=== PATIENT | male | born 1950 | race Caucasian/White ===

== ENCOUNTER 2018-04-05 08:06 | Emergency (ER) | payer OTHER, SELFPAY ==
[2018-04-05 08:07] VITALS: BP 148/84; PULSE 52; RESP 14; TEMP 37; O2SAT 96; BMI 27.7
--- NOTE | 2018-04-05 08:21 | CT_ITS ---
STUDY: CT ABDOMEN AND PELVIS WITHOUT CONTRAST REASON FOR EXAM: Male, 68 years old. Left flank pain. RADIATION DOSAGE (If Supplied By Facility): CTDIvol = ( 7.71 ) mGy, DLP = ( 369.76 ) mGycm TECHNIQUE: Transaxial images were obtained from the dome of the diaphragm to the symphysis pubis without oral contrast, and without intravenous contrast. Sagittal and coronal images were reconstructed. Individualized dose optimization techniques were used for this CT. COMPARISON: None. FINDINGS: The visualized lung bases are unremarkable. The visualized portions of the heart are within normal limits. Normal liver. Normal gallbladder and extrahepatic biliary system. Normal spleen. Normal pancreas. Normal bilateral adrenal glands. There is a 2.1 cm x 1.8 cm well-defined rounded hypodensity projecting from the posterior lateral aspect of the right kidney. There is a 3.8 cm x 4.2 cm soft tissue mass arising from the inferior posterior aspect of the right kidney. A neoplastic process should be ruled out. There is evidence of a right perinephric stranding. Correlation with an enhanced CT scan is recommended. There is a marked degree of left perinephric and periureteric stranding. This extends into the left hemipelvis and left flank. Mild left hydronephrosis. This is due to a 5.3 mm calculus at the left ureterovesical junction. There is a small hiatal hernia. Normal small intestine. Normal colon. The appendix is visualized and appears normal. There is scattered atherosclerotic calcification of the abdominal aorta, without a demonstrated aneurysm. Normal inferior vena cava. Normal retroperitoneum. Diffuse bladder wall thickening. There are prostatic calcifications. Prostatic enlargement. The prostate measures 4.6 cm x 3.5 cm. Normal abdominal wall. There are degenerative changes of the visualized lumbar spine. CT/Abdomen/Pelvis without Cont IMPRESSION: Left hydronephrosis and left hydroureter with marked degree of left perinephric stranding and periureteric stranding. There is a 5.3 mm calculus at the left ureterovesical junction. Hydronephrosis. Findings suggestive of a solid mass in the lower pole of the right kidney. Correlation with ultrasound or enhanced CT scan is recommended for further evaluation. Electronically Signed: Michael Miles MD at 9:51 EST Tel [phone], Service support ,
--- NOTE | 2018-04-05 08:26 | ED.DCSUM_ITS ---
- ER Visit Summary Date of Service: 04/05/18 Chief Complaint: Left flank pain History of Present Illness: The patient is a 68 M who presents with left flank pain that began last night. Patient states the pain is been constant since last night but has been waxing and waning. Patient states the pain would get sharp at times but now is a constant ache. Patient denies any radiation of the pain. Patient denies any dysuria hematuria. Patient denies any nausea or vomiting. Patient states he has had a recent upper respiratory infection with a sore throat and cough with clear sputum. Patient also admits to some rhinorrhea. Patient denies any fevers or chills. Physical Examination: Vital signs are stable. Patient is afebrile. Patient is in no acute distress. Oral mucosa is pink and moist. Neck is supple. Trachea is midline. There is no JVD noted. Heart was regular rate and rhythm. Lungs are clear and equal bilaterally. There is good respiratory effort noted. Abdomen is soft. There is some mild tenderness in the left lower quadrant. There is no rebound or guarding noted. There are no masses noted. Cranial nerves II through XII are intact. There are no focal motor or sensory deficits noted. The remaining physical exam is within normal limits. Test Results: CBC, basic metabolic profile, and urinalysis were obtained. There is a mild leukocytosis of 14.3. BUN and creatinine were slightly elevated at 28 and 1.66. Urinalysis does not show any evidence of urinary tract infection. CT scan of the abdomen and pelvis was obtained. There is a 5.3 mm calculus at the left UVJ with hydronephrosis and hydroureter. There is also a solid mass in the lower pole of the right kidney. Emergency Department Course and Treatment: Patient was given IV fluids and Toradol here. Patient was given a prescription for Percocet. Patient was also given a prescription for Tessalon for his upper respiratory infection. Patient was given a referral for urology. Patient was instructed to follow-up in 5-7 days. Patient understood and was agreeable with the plan. All questions were answered. Disposition: Discharged home Impression: Left distal ureteral calculus This note was generated with [employer] dictation software. It may contain incorrect words, spelling, and punctuation that were not noted in review of the chart prior to signing ED Disposition - Plan for ED Patient: Disposition: Home or Assisted Living Chief Complaint: Flank Pain Diagnosis: Calculus of distal left ureter Instructions: ED Stone Renal W Colic Prescriptions: Oxycodone HCl/Acetaminophen [Percocet 5/325] 1 tab PO Q6H PRN PRN 3 Days #12 tab PRN Reason: Pain Benzonatate [Tessalon Perle] 200 mg PO TID PRN PRN #20 cap PRN Reason: Cough Referrals: Care Physician,No Primary [Primary Care Provider] - David Kay MD [STAFF PHYSICIAN] -
[2018-04-05] MEDS: Ketorolac 30 MG/ML Syringe 15 MG IV (08:29)
[2018-04-05 08:31] LABS: Bacteria 0 SEEN /hpf (None Seen); Color, Urine Yellow (Yellow); Glucose, Dipstick Normal (Normal); Ketone-Dipstick Negative (Negative); Leukocyte Esterase-Dipstick Negative /ul (Negative); Mucous, Urine 0 SEEN /hpf (<or=2+); Nitrite-Dipstick Negative (Negative); Occult Blood-Urine 25 /ul (Negative); Protein-Dipstick 15 mg/dl (Negative); Specific Gravity, Urine 1.025 (1.002-1.030); Squamous Epithelial Cells - UA 0 SEEN /hpf (0-5); Urine Bilirubin Dipstick Negative (Negative); Urine Clarity Sl. Cloudy (Clear); Urine Urobilinogen Normal (Normal); White Blood Cells 0 SEEN /hpf (0-5)
[2018-04-05 08:38] LABS: Red Blood Cells-Urine 0-5 SEEN /hpf (0-5)
[2018-04-05 08:41] LABS: Absolute Lymphocyte Count 0.77 X10^3/ul (0.83-4.51); Absolute Neutrophil Count 12.7 X10^3/uL (2.0-7.7); Basophil# 0.02 X10^3/uL; Basophil% 0.1 % (0-1); Hematocrit 39.8 % (40-54); Hemoglobin 13.4 g/dl (13.0-16.5); Lymphocyte # 0.77 X10^3/ul (4.0); Lymphocyte % 5.4 % (19-41); Mean Corp Hgb Conc 33.7 g/gl (32-36); Mean Corpuscular Hgb 29.4 pg (27.0-32.0); Mean Corpuscular Volume 87.3 fL (80-94); Mean Platelet Vol. 10.3 fl (6.2-12.0); Monocyte# 0.79 X10^3/uL; Monocyte% 5.5 % (0-10); Neutrophil # 12.66 X10^3/uL (2.7-7.7); Neutrophil % 88.9 % (47-70); Platelet Count 276 K/mm3 (150-450); RBC Distribution Width CV 12.4 % (11.6-14.6); RBC Distribution Width SD 39.7 fl (35.1-43.9); Red Blood Count 4.56 M/mm3 (4.6-6.2); White Blood Count 14.3 K/mm3 (4.4-11.0)
[2018-04-05 08:42] LABS: POSITIVE COUNT NO; POSITIVE DIFFERENTIAL NO; POSITIVE MORPHOLOGY NO
[2018-04-05 08:45] LABS: Anion Gap 11 (5-15); BUN 28 mg/dL (7-18); BUN/Creat Ratio 16.9 RATIO (10-20); Calcium,Total 8.4 mg/dL (8.5-10.1); Chloride 107 mmol/L (98-107); Creatinine, Serum 1.66 mg/dL (0.70-1.30); EST Glomerular Filtration Rate 44 mL/min (>60); Est Glom Filt Rate - Afr Amer 53 mL/min (>60); Estimated Creatinine Clearance 40.37 ml/min; Glucose 128 mg/dL (74-106); Potassium 3.9 mmol/L (3.5-5.1); Sodium Level 140 mmol/L (136-145)
[2018-04-05 09:16] VITALS: BP 111/58; PULSE 54; RESP 12; O2SAT 97
[2018-04-05] MEDS: 0.9% Normal Saline 1,000 ML 1000 ML IV (09:18)
[2018-04-05 10:50] VITALS: BP 122/76; PULSE 56; RESP 14; O2SAT 96
== END 2018-04-05 10:51 | disposition home or self-care (01) ==
PROVIDERS: Emergency Provider Emergency Medicine
DX: N13.2 Hydronephrosis with renal and ureteral calculous obstruction (principal); J06.9 Acute upper respiratory infection, unspecified
CPT/HCPCS: 74176; 80048; 81001; 85025; 96361; 96374; 99283; J7030

== ENCOUNTER 2018-10-18 10:30 | Emergency (ER) | payer OTHER, SELFPAY ==
[2018-10-18 10:31] VITALS: BP 159/94; PULSE 60; RESP 18; TEMP 37.4; O2SAT 94; BMI 28.1
--- NOTE | 2018-10-18 10:53 | CT_ITS ---
STUDY: CT ABDOMEN AND PELVIS WITHOUT CONTRAST REASON FOR EXAM: Male, 68 years old. Left flank pain RADIATION DOSAGE (If Supplied By Facility): CTDIvol = ( 9.57 ) mGy, DLP = ( 487.77 ) mGycm TECHNIQUE: Transaxial images were obtained from the dome of the diaphragm to the symphysis pubis without oral contrast, and without intravenous contrast. Sagittal and coronal images were reconstructed. Individualized dose optimization techniques were used for this CT. COMPARISON: None. FINDINGS: The visualized lung bases are unremarkable. The visualized portions of the heart are within normal limits. Normal liver. Normal gallbladder and extrahepatic biliary system. Normal spleen. Normal pancreas. Normal bilateral adrenal glands. Right kidney is free of obstruction. There is nonspecific induration of the perinephric fat. There is a stable 2.1 x 1.8 cm likely simple cyst arising from the posterior lateral aspect of the right kidney and a worrisome 3.8 x 4.2 cm soft tissue mass in the inferior aspect of the right kidney. A neoplastic process needs to be excluded. Left kidney shows hydronephrosis and hydroureter with perinephric and pararenal ureteral inflammatory stranding. This is essentially unchanged on the previous study. The previous study showed a 5.3 mm stone at the left UVJ, that stone is now moved only slightly distally and is likely at the ureter entrance into the bladder is seen on axial image 148. Normal visualized stomach. Normal small intestine. Retained stool noted throughout the colon. The appendix is visualized and appears normal. Normal abdominal aorta. Normal inferior vena cava. Normal retroperitoneum. Normal urinary bladder. There are prostatic calcifications. There are bilateral fat-containing inguinal hernias. There are diffuse degenerative changes of the visualized lumbar spine, and pelvis. CT/Abdomen/Pelvis without Cont IMPRESSION: Persistent left hydronephrosis and hydroureter with perinephric and periureteral inflammatory stranding. A previously noted 5.3 mm stone in the distal left ureter has now moved only slightly distally and sits just distal to the left UVJ within the bladder. Persistent suspicious 3.8 x 4.2 cm solid lesion off the lower pole the right kidney, neoplasm needs be excluded. Stable 2.1 x 1.8 cm cyst off the posterior lateral right kidney Retained stool noted throughout the colon Bilateral fat-containing inguinal hernias Degenerative bony changes Electronically Signed: Naif Bhagat MD at 12:27 EDT , Service support ,
--- NOTE | 2018-10-18 10:55 | ED.DCSUM_ITS ---
- ER Visit Summary Date of Service: 10/18/18 Chief Complaint: Left abdominal pain History of Present Illness: The patient is a 68 M who presents for left-sided abdominal pain. Patient states it started 2 days ago and has waxed and waned in intensity. Today it is intense. Patient denies any fever, chest pain, shortness of breath, nausea, vomiting, diarrhea, blood in his stool, or any urinary symptoms. No radiation into the back or to the right side. Patient has a history of a prior kidney stone and states this does feel similar. No other medical issues. He has not taken any medications for the pain. Physical Examination: Vital signs: afebrile, hemodynamically stable, no hypoxia on room air General: Stoic, well nourished, well developed, in no distress Skin: warm, dry, no rash, no pallor HEENT: normocephalic and atraumatic; PERRL, EOMI, moist mucous membranes Cardiovascular: regular rate and rhythm without murmurs, no peripheral edema, 2+ pulses all distal extremities Respiratory: No increased work of breathing, lungs are clear to auscultation bilaterally, no rales, rhonchi or wheezing Abdominal: Abdomen is soft, nontender with normoactive bowel sounds, no guarding or rebound, no masses, mild left-sided CVA tenderness, no rash to the torso MSK: Moves all extremities, no deformities, normal strength Neuro: Awake and alert, oriented ?4. No facial droop, sensation and motor function intact and symmetric Test Results: Abnormal Lab Results 10/18/18 10/18/18 10/18/18 11:15 11:15 12:10 WBC 12.4 H RBC 4.59 L Hgb 13.5 Hct 39.1 L MCV 85.2 MCH 29.4 MCHC 34.5 RDW 12.2 RDW Differential 37.6 Plt Count 276 MPV 9.9 Immature Gran % (Auto) 0.200 Neut % (Auto) 83.6 H Lymph % (Auto) 6.2 L [place] % (Auto) 9.9 Eos % (Auto) 0.0 Baso % (Auto) 0.1 Absolute Neuts (auto) 10.4 H Absolute Lymphs (auto) 0.77 L Total Counted Not Reportable Sodium 136 Potassium 4.3 Chloride 104 Carbon Dioxide 25.0 Anion Gap 7 BUN 29 H Creatinine 1.90 H Estim Creat Clear Calc 35.27 Est GFR (MDRD) Af Amer 46 L Est GFR (MDRD) Non-Af 38 L BUN/Creatinine Ratio 15.3 Glucose 110 H Calcium 8.7 Urine Color Yellow Urine Clarity Clear Urine pH 6.0 Ur Specific Juliette 1.015 Urine Protein Negative Urine Glucose (UA) Normal Urine Ketones 15 H Urine Occult Blood 25 H Urine Nitrite Negative Urine Bilirubin Negative Urine Urobilinogen Normal Ur Leukocyte Esterase Negative Urine RBC 0 SEEN Urine WBC 0 SEEN Ur Squamous Epith Cells 0 SEEN Urine Bacteria 0 SEEN Urine Mucus 0 SEEN Clinical Impression(s) from Imaging Studies Abdomen/Pelvis CT 10/18/18 10:53 IMPRESSION: Persistent left hydronephrosis and hydroureter with perinephric and periureteral inflammatory stranding. A previously noted 5.3 mm stone in the distal left ureter has now moved only slightly distally and sits just distal to the left UVJ within the bladder. Persistent suspicious 3.8 x 4.2 cm solid lesion off the lower pole the right kidney, neoplasm needs be excluded. Stable 2.1 x 1.8 cm cyst off the posterior lateral right kidney Retained stool noted throughout the colon Bilateral fat-containing inguinal hernias Degenerative bony changes Electronically Signed: Naif Bhagat MD at 12:27 EDT , Service support , Medications Given Discontinued Medications Ketorolac Tromethamine (Toradol) 15 mg IV X1 ONE Stop: 10/18/18 10:54 Last Admin: 10/18/18 11:36 Dose: 15 mg Emergency Department Course and Treatment: Patient was given Toradol for pain. He had good relief of his pain with this medication. Labs showed mild leukocytosis of 12.4. Creatinine was 1.9, consistent with patient's baseline function. Urine showed no overt hematuria and no sign of infection. CT flank showed the left sided kidney stone that was present on the March 2018 the scan, and it has barely progressed since that scan was done. Patient was referred to urology for further intervention. He is to call today or tomorrow to make an appointment. He states he Dino has pain medication at home and did not need any further prescriptions. Return precautions given. Patient discharged home well-appearing and in no distress. Treatment Plan: [] Disposition: [] Impression: Left-sided ureteral colic This note was generated with [employer] dictation software. It may contain incorrect words, spelling, and punctuation that were not noted in review of the chart prior to signing ED Disposition - Plan for ED Patient: Disposition: Home or Assisted Living Instructions: ED Stone Renal W Colic Referrals: Care Physician,No Primary [Primary Care Provider] - David Kay MD [STAFF PHYSICIAN] - As soon as possible Additional Instructions: You still have a kidney stone on the left side that looks like the same one you had in March. Please follow-up with urology as soon as possible. Call this afternoon or early in the morning to make an appointment soon as they can get you when. Within 1 week would be preferable. Continue your home pain medications as needed for pain. If you have any worsening of your condition or any new concerning symptoms, please return immediately to the emergency department for another evaluation.
[2018-10-18 11:27] LABS: Absolute Lymphocyte Count 0.77 X10^3/ul (0.83-4.51); Absolute Neutrophil Count 10.4 X10^3/uL (2.0-7.7); Basophil# 0.01 X10^3/uL; Basophil% 0.1 % (0-1); Hematocrit 39.1 % (40-54); Hemoglobin 13.5 g/dl (13.0-16.5); Lymphocyte # 0.77 X10^3/ul (4.0); Lymphocyte % 6.2 % (19-41); Mean Corp Hgb Conc 34.5 g/gl (32-36); Mean Corpuscular Hgb 29.4 pg (27.0-32.0); Mean Corpuscular Volume 85.2 fL (80-94); Mean Platelet Vol. 9.9 fl (6.2-12.0); Monocyte# 1.23 X10^3/uL; Monocyte% 9.9 % (0-10); Neutrophil # 10.37 X10^3/uL (2.7-7.7); Neutrophil % 83.6 % (47-70); POSITIVE COUNT NO; POSITIVE DIFFERENTIAL NO; POSITIVE MORPHOLOGY NO; Platelet Count 276 K/mm3 (150-450); RBC Distribution Width CV 12.2 % (11.6-14.6); RBC Distribution Width SD 37.6 fl (35.1-43.9); Red Blood Count 4.59 M/mm3 (4.6-6.2); White Blood Count 12.4 K/mm3 (4.4-11.0)
[2018-10-18] MEDS: Ketorolac 30 MG/ML Syringe 15 MG IV (11:36)
[2018-10-18 11:45] LABS: Anion Gap 7 (5-15); BUN 29 mg/dL (7-18); BUN/Creat Ratio 15.3 RATIO (10-20); Calcium,Total 8.7 mg/dL (8.5-10.1); Chloride 104 mmol/L (98-107); EST Glomerular Filtration Rate 38 mL/min (>60); Est Glom Filt Rate - Afr Amer 46 mL/min (>60); Estimated Creatinine Clearance 35.27 ml/min; Glucose 110 mg/dL (74-106); Potassium 4.3 mmol/L (3.5-5.1); Sodium Level 136 mmol/L (136-145)
[2018-10-18 12:08] VITALS: BP 125/79; PULSE 53; RESP 16; TEMP 36.6; O2SAT 93
[2018-10-18 12:16] LABS: Bacteria 0 SEEN /hpf (None Seen); Mucous, Urine 0 SEEN /hpf (<or=2+); Red Blood Cells-Urine 0 SEEN /hpf (0-5); Squamous Epithelial Cells - UA 0 SEEN /hpf (0-5); White Blood Cells 0 SEEN /hpf (0-5)
[2018-10-18 12:21] LABS: Color, Urine Yellow (Yellow); Glucose, Dipstick Normal (Normal); Ketone-Dipstick 15 mg/dl (Negative); Leukocyte Esterase-Dipstick Negative /ul (Negative); Nitrite-Dipstick Negative (Negative); Occult Blood-Urine 25 /ul (Negative); Protein-Dipstick Negative (Negative); Specific Gravity, Urine 1.015 (1.002-1.030); Urine Bilirubin Dipstick Negative (Negative); Urine Clarity Clear (Clear); Urine Urobilinogen Normal (Normal)
== END 2018-10-18 13:44 | disposition home or self-care (01) ==
PROVIDERS: Emergency Provider Emergency Medicine
DX: N20.0 Calculus of kidney (principal); Z87.442 Personal history of urinary calculi
CPT/HCPCS: 74176; 80048; 81001; 85025; 96374; 99283; A4216

== ENCOUNTER → 2018-11-12 | Outpatient (CLI) | payer SELFPAY ==
[2018-10-18 10:31] VITALS: BMI 28.1
--- NOTE | 2018-11-12 08:28 | CT_ITS ---
STUDY: CT ABDOMEN AND PELVIS WITH AND WITHOUT CONTRAST REASON FOR EXAM: Male, 68 years old. Left kidney stone. Right renal mass. RADIATION DOSAGE (If Supplied By Facility): CTDIvol = ( 17.92 ) mGy, DLP = ( 2039.35 ) mGycm TECHNIQUE: Transaxial images were obtained from the dome of the diaphragm to the symphysis pubis without oral contrast. 75ml IV Isovue 300 was administered. Sagittal and coronal images were reconstructed. Individualized dose optimization techniques were used for this CT. COMPARISON: 04/05/2018, 10/18/2018. FINDINGS: The visualized lung bases are unremarkable. The visualized portions of the heart are within normal limits. Normal liver. Normal gallbladder and extrahepatic biliary system. Normal spleen. Normal pancreas. Normal bilateral adrenal glands. Right kidney has a stable heterogeneous enhancing 0.9 cm mass of the right lower pole consistent with malignancy and also diagnosed on previous studies. Stable 2.2 cm exophytic cyst of the mid right kidney. Left kidney is within normal limits. Evaluation of the GI tract is limited by absence of oral contrast. Cannot exclude stomach wall thickening. No dilated loops of bowel or evidence for obstruction. Cannot exclude segmental thickening of the mondragon of the small or large bowel. Cannot exclude enteritis or colitis. Moderate diffuse fecal retention. Appendix within normal limits. Normal abdominal aorta. Normal inferior vena cava. Normal retroperitoneum. Bladder has slightly thickened wall. 2 or 3 small stones are seen on the posterior wall of the bladder. Moderately large prostate gland. Bilateral small fat-containing inguinal hernias. There are diffuse degenerative changes of the visualized lumbar spine. CT/CT Abd/Pelvis W/WO Contrast IMPRESSION: Again seen is a probable malignancy of the lower pole of the right kidney, as noted on prior studies. No other acute abnormalities. Small stones along the posterior wall of the bladder. Probable bladder wall thickening from prostate enlargement. Electronically Signed: Chandler Priest MD at 17:09 EDT , Service support ,
== END | disposition home or self-care (01) ==
PROVIDERS: Referring Provider Urology; Visit Provider Urology
DX: N20.0 Calculus of kidney (principal); N28.89 Other specified disorders of kidney and ureter
CPT/HCPCS: 74178; Q9967

== ENCOUNTER 2018-12-18 07:29 | Observation (INO) | payer SELFPAY ==
[2018-12-10 11:05] VITALS: BP 151/89; PULSE 48; RESP 16; TEMP 36.6; O2SAT 95; BMI 27.3
--- NOTE | 2018-12-10 11:13 | SDCEKG_ITS ---
Test Reason : Blood Pressure : / mmHG Vent. Rate : 047 BPM Atrial Rate : 047 BPM P-R Int : 152 ms QRS Dur : 094 ms QT Int : 426 ms P-R-T Axes : 061 001 011 degrees QTc Int : 377 ms Marked sinus bradycardia Abnormal ECG Confirmed by HERNAN COOPER, TROY ([id number]), purchase request editor ELIDA WEST ([id number]) on 12/16/2018 1:07:54 PM Referred By: David Kay Confirmed By:ALEXIS BECERRA MD
--- NOTE | 2018-12-10 11:24 | RAD_ITS ---
STUDY: X-RAY CHEST REASON FOR EXAM: Male, 68 years old. Preoperative evaluation. Shortness of breath. TECHNIQUE: PA and lateral views of the chest. COMPARISON: None. FINDINGS: The lungs are clear and expanded. There is no demonstrated pleural abnormality. Normal size heart. Normal mediastinum and pushpa. Normal visualized pulmonary arteries. There is atherosclerotic tortuosity of the aortic arch and descending thoracic aorta. There are diffuse degenerative changes of the visualized thoracic spine. Normal visualized ribs, clavicles, and shoulders. There is no demonstrated abnormality of the visualized soft tissue structures of the upper abdomen. RAD/Chest PA and Lateral IMPRESSION: No acute abnormality is seen. Electronically Signed: Michael Miles, at 12:25 EDT , Service support ,
[2018-12-10 11:47] LABS: Hematocrit 41.5 % (40-54); Hemoglobin 13.9 g/dL (13.0-16.5); Mean Corp Hgb Conc 33.5 g/dL (32-36); Mean Corpuscular Hgb 29.4 pg (27.0-32.0); Mean Corpuscular Volume 87.9 fL (80-94); Mean Platelet Vol. 10.2 fl (6.2-12.0); Platelet Count 254 K/mm3 (150-450); RBC Distribution Width CV 11.9 % (11.6-14.6); Red Blood Count 4.72 M/mm3 (4.6-6.2); White Blood Count 8.8 K/mm3 (4.4-11.0)
[2018-12-10 12:55] LABS: ALB/GLOB Ratio 1.1 RATIO (0.9-2.4); AST(SGOT) 23 U/L (15-37); Alanine Aminotransfer ALT/SGPT 15 U/L (16-61); Alkaline Phosphatase 64 U/L (45-117); Anion Gap 10 (5-15); BUN 20 mg/dL (7-18); BUN/Creat Ratio 22.6 RATIO (10-20); Calcium,Total 8.8 mg/dL (8.5-10.1); Chloride 107 mmol/L (98-107); Creatinine, Serum 0.88 mg/dL (0.70-1.30); EST Glomerular Filtration Rate 91 mL/min (>60); Est Glom Filt Rate - Afr Amer 110 mL/min (>60); Estimated Creatinine Clearance 76.16 ml/min; Globulin 3.6 g/dL (2.2-4.2); Glucose 102 mg/dL (74-106); Potassium 4.1 mmol/L (3.5-5.1); Protein, Total 7.6 g/dL (6.4-8.2); Sodium Level 141 mmol/L (136-145)
[2018-12-18] VITALS (14 sets, daily range): BP systolic 113–151; BP diastolic 69–86; PULSE 52–66; RESP 14–18; TEMP 36.2–37.2; O2SAT 93–99; BMI 27.3
--- NOTE | 2018-12-18 07:27 | PCM.HP.BLA ---
History and Physical Date of Admission: 12/18/18 Patient returns, 68-year-old healthy male recently passed a kidney stone but on CAT scan we saw that there was an abnormal growth on his right kidney so we did a CT scan with IV contrast. CAT scan demonstrates that he has a 4 cm mass in the lower pole of the right kidney. He also has a stone within the bladder. Symptom harper at this point is not have any back pain or flank pain. No weight loss. He's been feeling well. No gross hematuria. 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 Tobacco Use Assessment Completed: Used Tobacco in last 30 days? Does not use smokeless tobacco. Has never drank. Does not use drugs. Does not drink caffeine. Has not had a blood transfusion. REVIEW OF SYSTEMS: Constitutional: Patient denies fever, chills, weight loss, and weight gain. Eyes: Patient denies blurry vision, cataracts, and glaucoma. Ears, Nose, Mouth, Throat: Patient denies hearing loss, sinus infections, and sleep apnea. Cardiovascular: Patient denies chest pains, swollen ankles, irregular heartbeat, and pacemaker/defib. Respiratory: Patient denies shortness of breath, wheezing, oxygen, and cpap machine. Gastrointestinal: Patient denies abdominal pain, diarrhea, constipation, nausea, and vomiting. Genitourinary: Patient denies frequent urination, urinary retention, get up at night to void, leakage of urine, painful urination, blood in the urine, frequent uti's, history of stones, difficulty starting stream, weak stream/scanty, and bedwetting. Musculoskeletal: Patient denies sore muscles, back pain, and gout. Integumentary/Skin: Patient denies skin cancer, chronic itching, and rash. Neurological: Patient denies falling/unsteady, paralysis, and stroke/tia. Hematologic/Lymphatic: Patient denies abnormal bleeding, blood transfusion, swollen lymph nodes, deep venous thrombosis, and pulmonary embolism. VITAL SIGNS: 12/10/2018 10:16 AM Weight 175 lb / 79.38 kg Height 67 in / 170.18 cm BP 118/78 mmHg BMI 27.4 kg/m? MULTI-SYSTEM PHYSICAL EXAMINATION: Constitutional: Well-nourished. No physical deformities. Normally developed. Good grooming. Neck: Neck symmetrical, not swollen. Normal tracheal position. Respiratory: No labored breathing, no use of accessory muscles. Cardiovascular: Normal temperature, normal extremity pulses, no swelling, no varicosities. Lymphatic: No enlargement of neck, axillae, groin. Skin: No paleness, no jaundice, no cyanosis. No lesion, no ulcer, no rash. Neurologic / Psychiatric: Oriented to time, oriented to place, oriented to person. No depression, no anxiety, no agitation. Gastrointestinal: No mass, no tenderness, no rigidity, non obese abdomen. Eyes: Normal conjunctivae. Normal eyelids. Ears, Nose, Mouth, and Throat: Left ear no scars, no lesions, no masses. Right ear no scars, no lesions, no masses. Nose no scars, no lesions, no masses. Normal hearing. Normal lips. Musculoskeletal: Normal gait and station of head and neck. PAST DATA REVIEWED: Source Of History: Patient X-Ray Review: C.T. Abdomen/Pelvis: Reviewed Films. Reviewed Report. Discussed With Patient. 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 Also at the time of the procedure can do a cystoscopy and laser and removal of a bladder stone and evaluation of the prostate and bladder, he be set up for the surgery coming here in December will see him in preoperative setting to review the surgery what to expect etc
--- NOTE | 2018-12-18 07:30 | KID_PTH ---
PATIENT: VIVIAN FARFAN LOC: [facility] U#:[id number] AGE/SX: 68/M ROOM: [facility] RE12/18/[address]: Dr. David Kay MD : 1950 BED: 1 DIS: 12/21/2018 SPEC #: [id number] RECD: 12/19/18 08:03 STATUS: FLORENTIN KEVIN #: [id number] KAVON: 12/18/18 07:[address]: David Kay DEPT: SURGICAL PATHOLOGY RECD BY: Riaz De La Cruz ENTERED: 12/19/18 08:04 SP TYPE: KIDNEY OTHR DR: Loida Primary Care Phys Tissues: A - Kidney, NOS B - Kidney, NOS Procedures: Gen Path Consultation (on slides) Surgery Specimen Level IV Surgery Specimen Level V HEADER OPERATION: Laparoscopic robotic right partial nephrectomy PRE-OP DIAGNOSIS: Neoplasm of right kidney TISSUE SUBMITTED: A - Fat over tumor (from right kidney), B - Right renal tumor MICROSCOPIC DIAGNOSIS A. Fat over tumor from kidney, biopsy: Mature adipose tissue. No evidence of malignancy. B. Right renal tumor, partial nephrectomy: Oncocytoma. AM:mariela 12/27/18 COMMENT This case is seen in consultation with Dr. Aponte of [email or web address] and the above diagnosis is rendered.. The complete consultative report is viewable in patient's EMR. Case has been reviewed in consultation with Dr. Ramey who concurs with the above diagnosis. IDC:[id number] MICROSCOPIC DESCRIPTION Slides are reviewed. GROSS DESCRIPTION A - Received in fixative is one container labeled with the patient's name and designated fat over tumor from right kidney. The specimen consists of a piece of yellow adipose tissue measuring 9 x 6 x 2.5 cm. Sections reveal yellow adipose cut surfaces without any mass lesion. Teen Counselor sections are submitted in one cassette. B - Received in fixative is one container labeled with the patient's name and designated right renal tumor. The specimen consists of a piece of renal tissue containing a nodule weighing 26 gm and measuring 4.5 x 4 x 3 cm. The specimen could not be oriented for obvious renal parenchymal margin. The entire surface is inked black. Sections reveal yellowish, solid tumor mass measuring 4 x 3.5 x 3 cm. An area of necrosis or hemorrhage is not identified. Sections reveal normal appearing renal tissue measuring up to 0.7 cm in width. Also present in the container is a detached piece of adipose tissue measuring 6 x 4 x 2 cm. No mass lesion is identified. Teen Counselor sections are submitted in eight cassettes as follows: 1-4 - tumor with adjacent uninvolved renal parenchymal tissue, 5 & 6 - more sections of tumor, 7 & 8 - adipose tissue. / SJ:mariela 12/19/18 Additional sections of tumor are submitted in cassettes -12. / AM:mariela 12/20/18 TC:1 CPT: 27093, 25523
[2018-12-18] MEDS: Cefazolin 2 GM in 0.9% Normal Saline 100 ML IV (07:40)
--- NOTE | 2018-12-18 12:55 | OP.PCM_ITS ---
Report of Operation Date of Procedure: 12/18/18 Pre-Operative Diagnosis: Bladder stone, right 4 cm lower pole renal mass Post-Operative Diagnosis: The same Surgery/Procedure Performed:: Cystoscopy, laser of bladder stone removal of fragments, right laparoscopic robotic assisted partial nephrectomy, ultrasound of the kidney intraoperative. Description of Surgical Findings:: 68-year-old male who presented the office with gross hematuria on work-up he was found to have a stone in his bladder and he also had a solid enhancing mass in the right kidney concerning for malignancy recommended we proceed with treatment of the bladder stone with cystolitholapaxy and removal of the bladder stone in the same time we then proceed with a robotic right partial nephrectomy. We talked about the potential etiologies of the renal mass could be malignant, could be benign, type of the risk of the surgery including bleeding, infection, risk of anesthesia. 68-year-old male was taken back to the operating room after smooth induction of general anesthesia he was placed in dorsolithotomy position, the penis and testicles were prepped and draped in usual sterile fashion, went into the bladder with a 21 [place] rigid cystourethroscope, the entire length of the urethra is normal the prostate urethra was normal inside the bladder identified a 1 cm stone in the base of the bladder, I then used a 270 ?m laser fiber to break the stone into tiny pieces and then I flushed the pieces out of the bladder. On inspection of the prostate he had some mild obstruction but no significant obstruction was seen in the left and right ureter orifice were normal position. We then change the table repositioned the patient completely for a right sided position so the right side was up we put him in full flank with pressure points padded arm across the side and secured used to roll in the back to support the back Richards catheter was placed. And then after placing the patient in full flank he is abdomen was shaved prepped and draped in usual sterile fashion I first infiltrated the skin with lidocaine and then used a Veress needle into advanced a Veress needle into the peritoneal cavity filled at the peritoneal cavity with CO2 gas and then I placed my camera trocar right arm trocar left arm trocar and the fourth arm trocar we then placed a air seal port and he also placed a 5 mm port in the umbilicus. Started off by reflecting the colon off the right kidney started in the mid kidney and worked elevated superiorly and worked all the way down to the pelvis and the colon was successfully resected back after this we then identified the Gerota fascia dis sected down until it merged with the inferior vena cava elevated the drug was fascia off the medial inferior vena cava and identified the gonadal vein there was a branching vein decided to take it so 2 clips were placed in the canal vein to get it out of the way it was not draining directly in the vena cava look normal but it was draining into the right renal vein. We then proceeded with the dissection I used the fourth arm to elevate the kidney very gently off the hilum we then went to the hilum the hilum was a very complicated hilum with a large renal vein and multiple branching renal veins behind the large renal vein and then behind these branching veins was the renal artery took quite a extensive amount time to dissect around the hilum eventually was able to find the renal artery and freed up with lymphatic tissues and create a space so that I could clamp the renal artery. I then went up to the kidney used a director of estate scopic ultrasound to identify the tumor I then dissected the tumor circumferentially down to the parenchyma of the kidney marking the prink in the kidney so I do the resection site and to the edge of the resection to obtain negative margins once the tumor was demarcated all the way around using intraoperative ultrasound then a kidney was flipped back onto the normal position we able to identify the renal artery superior to the veins and we placed a one short bulldog in the renal artery fortunately this was able to control bleeding the kidney turned nice and pale white I then started the resection of the tumor working my way around the tumor circumferentially working deep down below the tumor we were had a gross negative margin and excised the tumor completely of the lower pole posterior part of the kidney I then ran 3 stitches along the base of the resection site using V lock stitches and then I used imbricated a bolster suture technique to run a long 0 Vicryl we then unclamped the kidney clamp time was about 29 minutes, and the blood loss was about 250 cc we then looked back a resection site there is still a little bit of minor oozing so I placed 2 more large 0 Vicryl Vicryl stitches to to put more pressure on the resection site and this fortunately stopped all bleeding we then irrigated the kidney suctioned all the blood we extracted the tumor from the air seal port site the tumor in the fat over the kidney kidney tumor was extracted to the air seal port site. We then closed that extraction site looked back into the abdomen is been at least 10 minutes with no new with peritoneum and there was no significant cannulation of blood within the abdomen. We then closed the camera trocar with a [place] Cheema stitch and then we closed all the stitches with subarticular stitches all the needles and sponges were accounted for patient is still under anesthesia currently in anesthesia being reversed mentioned in the dictation it was a complete resection of the tumor gross negative margins the tumor will be sent off for pathology. Type of Anesthesia:: General Drains: richards. Estimated Blood Loss (mL): 250ml Fluids Replaced: 2500ml - Admit VTE Documentation VTE Present on Admission: No VTE Mechan Device Prophylaxis: SCD's
[2018-12-18] MEDS: Bupivacaine Mpf 0.5% 30 ML VIAL (12:57)
[2018-12-18 15:04] LABS: Hematocrit 40.3 % (40-54); Hemoglobin 13.4 g/dL (13.0-16.5); Mean Corp Hgb Conc 33.3 g/dL (32-36); Mean Corpuscular Hgb 29.6 pg (27.0-32.0); Mean Platelet Vol. 10.5 fl (6.2-12.0); Platelet Count 295 K/mm3 (150-450); RBC Distribution Width SD 38.9 fl (35.1-43.9); Red Blood Count 4.53 M/mm3 (4.6-6.2); White Blood Count 20.1 K/mm3 (4.4-11.0)
[2018-12-18 15:31] LABS: Anion Gap 7 (5-15); BUN 15 mg/dL (7-18); BUN/Creat Ratio 12.4 RATIO (10-20); Calcium,Total 8.2 mg/dL (8.5-10.1); Chloride 108 mmol/L (98-107); Creatinine, Serum 1.21 mg/dL (0.70-1.30); EST Glomerular Filtration Rate 63 mL/min (>60); Est Glom Filt Rate - Afr Amer 77 mL/min (>60); Estimated Creatinine Clearance 55.39 ml/min; Glucose 162 mg/dL (74-106); Potassium 4.7 mmol/L (3.5-5.1); Sodium Level 142 mmol/L (136-145)
[2018-12-18] MEDS: Cefazolin 1 GM/50 ML BAG IV ×2 (15:41→22:00)
[2018-12-18] MEDS: 0.45% Normal Saline 1,000 ML 125 ML IV ×2 (15:49→22:07)
[2018-12-18] MEDS: Ondansetron 4 MG/2 ML Vial IV (16:54)
[2018-12-18] MEDS: Morphine 2 MG/ML Syringe IV (16:54)
[2018-12-18] MEDS: Acetaminophen 500 MG Tablet PO (17:25)
[2018-12-18] MEDS: HYDROcodone Bitartrate/Apap 5/325 Tablet PO (17:26)
[2018-12-18] MEDS: Ketorolac 15 MG/ML Vial IV (19:07)
[2018-12-18] MEDS: Docusate Sodium 100 MG Capsule PO (22:00)
[2018-12-19] VITALS (7 sets, daily range): BP systolic 110–119; BP diastolic 67–72; PULSE 53–64; RESP 16; TEMP 36.4–37.3; O2SAT 92–99
[2018-12-19] MEDS: Acetaminophen 500 MG Tablet PO (01:13)
[2018-12-19] MEDS: Ketorolac 15 MG/ML Vial IV ×2 (01:14→14:04)
[2018-12-19 06:16] LABS: Hematocrit 33.8 % (40-54); Hemoglobin 11.2 g/dL (13.0-16.5); Mean Corp Hgb Conc 33.1 g/dL (32-36); Mean Corpuscular Hgb 29.3 pg (27.0-32.0); Mean Corpuscular Volume 88.5 fL (80-94); Mean Platelet Vol. 10.4 fl (6.2-12.0); Platelet Count 206 K/mm3 (150-450); RBC Distribution Width CV 12.4 % (11.6-14.6); RBC Distribution Width SD 39.8 fl (35.1-43.9); Red Blood Count 3.82 M/mm3 (4.6-6.2); White Blood Count 9.2 K/mm3 (4.4-11.0)
[2018-12-19] MEDS: 0.45% Normal Saline 1,000 ML 125 ML IV (06:18)
[2018-12-19 06:23] LABS: Anion Gap 3 (5-15); BUN 18 mg/dL (7-18); BUN/Creat Ratio 13.3 RATIO (10-20); Calcium,Total 7.7 mg/dL (8.5-10.1); Chloride 107 mmol/L (98-107); Creatinine, Serum 1.35 mg/dL (0.70-1.30); EST Glomerular Filtration Rate 56 mL/min (>60); Est Glom Filt Rate - Afr Amer 68 mL/min (>60); Estimated Creatinine Clearance 49.64 ml/min; Glucose 107 mg/dL (74-106); Sodium Level 137 mmol/L (136-145)
--- NOTE | 2018-12-19 07:20 | PCM.PROGNOTE ---
Subjective: Postop day #1, no shortness of breath, no chest pain, up in a chair, tolerating liquids, no nausea or vomiting, does have significant pain rated around 7-10 depending on movement. - Physical Exam General: Alert, Oriented x3, Cooperative HEENT: Atraumatic, PERRLA, EOMI, Normocephalic Neck: Supple, No JVD, Negative Carotid Bruits Lungs: Clear to auscultation, Normal air movement Cardiovascular: Regular rate, No murmurs Abdomen: Bowel Sounds Present, Soft, Non Tender Extremities: No edema, Capillary Refill Less than 3 Seconds Skin: No rashes, No breakdown Musculoskeletal: No Tenderness to Palpation of Joints or Extremities Neurological: Cranial nerves II-XII grossly intact Psych/Mental Status: Normal Affect, Appropriate Vital Signs Temp Pulse Resp BP Pulse Ox 98.9 F 53 L 16 111/69 94 12/19/18 06:24 12/19/18 06:24 12/19/18 06:24 12/19/18 06:24 12/19/18 06:24 Oxygen Flow Rate (L/min) 2 Oxygen Delivery Method Room Air Weight: 79.1 kg Body Mass Index (BMI) 27.3 Intake and Output for Last 24 Hours 12/17/18 12/18/18 12/19/18 23:59 23:59 23:59 Intake Total 5800 / 7351 2472 / 2472 Output Total 415 / 1165 1650 / 1650 Balance 5385 / 6186 822 / 822 Laboratory Tests Past 24 Hrs 12/18/18 12/18/18 12/19/18 14:55 14:55 05:40 WBC 20.1 H 9.2 RBC 4.53 L 3.82 L Hgb 13.4 11.2 L Hct 40.3 33.8 L MCV 89.0 88.5 MCH 29.6 29.3 MCHC 33.3 33.1 RDW Std Deviation 38.9 39.8 RDW Coeff of Tomasa 12.0 12.4 Plt Count 295 206 MPV 10.5 10.4 Sodium 142 Potassium 4.7 Chloride 108 H Carbon Dioxide 27.0 Anion Gap 7 BUN 15 Creatinine 1.21 Estim Creat Clear Calc 55.39 Est GFR (MDRD) Af Amer 77 Est GFR (MDRD) Non-Af 63 BUN/Creatinine Ratio 12.4 Glucose 162 H Calcium 8.2 L 12/19/18 05:40 WBC RBC Hgb Hct MCV MCH MCHC RDW Std Deviation RDW Coeff of Tomasa Plt Count MPV Sodium 137 Potassium 4.0 Chloride 107 Carbon Dioxide 27.0 Anion Gap 3 L BUN 18 Creatinine 1.35 H Estim Creat Clear Calc 49.64 Est GFR (MDRD) Af Amer 68 Est GFR (MDRD) Non-Af 56 L BUN/Creatinine Ratio 13.3 Glucose 107 H Calcium 7.7 L Medical Necessity - Tobacco Use Smoking Status: Never smoker Tobacco Use: Non-smoker Assessment/Plan Plan today's continue with clear liquid diet, ambulation, KVO IV fluids down to 50 cc/h, and DC Diaz.
[2018-12-19] MEDS: Pantoprazole Sodium 20 MG Tablet PO (09:00)
[2018-12-19] MEDS: Magnesium Hydroxide 30 ML UDC 15 ML PO (09:00)
[2018-12-19] MEDS: Docusate Sodium 100 MG Capsule PO ×2 (09:00→21:17)
[2018-12-19] MEDS: 0.9% NaCl Peripheral Flush Adult/Peds IV (14:17)
[2018-12-19] MEDS: HYDROcodone Bitartrate/Apap 5/325 Tablet PO (19:35)
[2018-12-19] MEDS: 0.45% Normal Saline 1,000 ML 50 ML IV (22:30)
[2018-12-20] MEDS: HYDROcodone Bitartrate/Apap 5/325 Tablet PO (00:58)
[2018-12-20 01:02] VITALS: BP 134/79; PULSE 60; RESP 18; TEMP 36.7; O2SAT 93
[2018-12-20] MEDS: Ketorolac 15 MG/ML Vial IV (05:54)
[2018-12-20 05:58] LABS: Hematocrit 33.5 % (40-54); Hemoglobin 11.2 g/dL (13.0-16.5); Mean Corp Hgb Conc 33.4 g/dL (32-36); Mean Corpuscular Hgb 29.8 pg (27.0-32.0); Mean Corpuscular Volume 89.1 fL (80-94); Mean Platelet Vol. 10.6 fl (6.2-12.0); Platelet Count 207 K/mm3 (150-450); RBC Distribution Width CV 12.4 % (11.6-14.6); RBC Distribution Width SD 40.6 fl (35.1-43.9); Red Blood Count 3.76 M/mm3 (4.6-6.2); White Blood Count 8.5 K/mm3 (4.4-11.0)
[2018-12-20 05:59] VITALS: BP 112/78; PULSE 57; RESP 16; TEMP 37.3; O2SAT 92
[2018-12-20 06:19] LABS: Anion Gap 5 (5-15); BUN 15 mg/dL (7-18); BUN/Creat Ratio 11.8 RATIO (10-20); Calcium,Total 8.1 mg/dL (8.5-10.1); Chloride 109 mmol/L (98-107); Creatinine, Serum 1.27 mg/dL (0.70-1.30); EST Glomerular Filtration Rate 60 mL/min (>60); Est Glom Filt Rate - Afr Amer 73 mL/min (>60); Estimated Creatinine Clearance 52.77 ml/min; Glucose 99 mg/dL (74-106); Potassium 4.1 mmol/L (3.5-5.1); Sodium Level 142 mmol/L (136-145)
[2018-12-20 07:30] VITALS: O2SAT 97
--- NOTE | 2018-12-20 07:45 | PCM.PROGNOTE ---
Subjective: doing well pass gas some mild right pain - Physical Exam General: Alert, Oriented x3, Cooperative HEENT: Atraumatic, PERRLA, EOMI, Normocephalic Neck: Supple, No JVD, Negative Carotid Bruits Lungs: Clear to auscultation, Normal air movement Cardiovascular: Regular rate, No murmurs Abdomen: Bowel Sounds Present, Soft, Non Tender Extremities: No edema, Capillary Refill Less than 3 Seconds Skin: No rashes, No breakdown Musculoskeletal: No Tenderness to Palpation of Joints or Extremities Neurological: Cranial nerves II-XII grossly intact Psych/Mental Status: Normal Affect, Appropriate Vital Signs Temp Pulse Resp BP Pulse Ox 99.2 F H 57 L 16 112/78 92 12/20/18 05:59 12/20/18 05:59 12/20/18 05:59 12/20/18 05:59 12/20/18 05:59 Oxygen Flow Rate (L/min) 2 Oxygen Delivery Method Room Air Weight: 79.1 kg Body Mass Index (BMI) 27.3 Intake and Output for Last 24 Hours 12/18/18 12/19/18 12/20/18 23:59 23:59 23:59 Intake Total 5800 / 7351 4689 / 4689 527 / 527 Output Total 415 / 1165 3025 / 3025 Balance 5385 / 6186 1664 / 1664 527 / 527 Laboratory Tests Past 24 Hrs 12/20/18 12/20/18 05:20 05:20 WBC 8.5 RBC 3.76 L Hgb 11.2 L Hct 33.5 L MCV 89.1 MCH 29.8 MCHC 33.4 RDW Std Deviation 40.6 RDW Coeff of Tomasa 12.4 Plt Count 207 MPV 10.6 Sodium 142 Potassium 4.1 Chloride 109 H Carbon Dioxide 28.0 Anion Gap 5 BUN 15 Creatinine 1.27 Estim Creat Clear Calc 52.77 Est GFR (MDRD) Af Amer 73 Est GFR (MDRD) Non-Af 60 BUN/Creatinine Ratio 11.8 Glucose 99 Calcium 8.1 L Medical Necessity - Tobacco Use Smoking Status: Never smoker Tobacco Use: Non-smoker Assessment/Plan heplock ivf reg diet ambulate home tomorrow
--- NOTE | 2018-12-20 07:46 | DCINST_ITS ---
Discharge Diet: Light diet - advance as tolerated Discharge Activity: Return to Normal Activity May resume sexual activity in: No Restrictions Lifting Restrictions: no lifting > 10lbs Call your doctor if your incision/area has: Continuous Slow Oozing, Sudden Inc reased Bleeding, Increased Pain/ Swelling, Increased Redness, Foul Smelling Discharge, Swelling at the incision site Call your doctor if you observe: Fever of 101 or Higher, Inability to urinate, Inability to have a bowel movement, Uncontrolled pain Suture Line Care: Avoid Pulling/Pushing, Avoid Pinching/Bending Allergies/Adverse Reactions: Allergies No Known Allergies Allergy (Verified 12/10/18 10:56) Medications to take at Discharge Natural Product For Prostate 1 tab PO DAILY 12/10/18 Primary Care Physician: Care Physician,No Primary [Primary Care Provider] - Test Results: Test results from this visit will be discussed in further detail at your follow- up appointment, if applicable. Please Follow Up With: David Kay MD When: please call to make an appointment. Proposed Discharge Date: 12/21/18
--- NOTE | 2018-12-20 07:50 | PCM.DC.SUM ---
Discharge Date and Diagnosis Date of Admission: 12/18/18 Date of Discharge: 12/21/18 Hospital Course and Treatment Operations: - - left robotic partial nephrectomy Procedures: None Summary of Care Provided: The patient is a 68 year old Male s/p left robotic partial nephrectomy discharged on pod #3 in good condition, post op course unremarkable doing well. - Physical Exam General: Alert, Oriented x3, Cooperative HEENT: Atraumatic, PERRLA, EOMI, Normocephalic Neck: Supple, No JVD, Negative Carotid Bruits Lungs: Clear to auscultation, Normal air movement Cardiovascular: Regular rate, No murmurs Abdomen: Bowel Sounds Present, Soft, Non Tender Extremities: No edema, Capillary Refill Less than 3 Seconds Skin: No rashes, No breakdown Musculoskeletal: No Tenderness to Palpation of Joints or Extremities Neurological: Cranial nerves II-XII grossly intact Psych/Mental Status: Normal Affect, Appropriate Vital Signs Temp Pulse Resp BP Pulse Ox 99.2 F H 57 L 16 112/78 92 12/20/18 05:59 12/20/18 05:59 12/20/18 05:59 12/20/18 05:59 12/20/18 05:59 Oxygen Flow Rate (L/min) 2 Oxygen Delivery Method Room Air Weight: 79.1 kg Body Mass Index (BMI) 27.3 Intake and Output for Last 24 Hours 12/18/18 12/19/18 12/20/18 23:59 23:59 23:59 Intake Total 5800 / 7351 4689 / 4689 527 / 527 Output Total 415 / 1165 3025 / 3025 Balance 5385 / 6186 1664 / 1664 527 / 527 Laboratory Tests Past 24 Hrs 12/20/18 12/20/18 05:20 05:20 WBC 8.5 RBC 3.76 L Hgb 11.2 L Hct 33.5 L MCV 89.1 MCH 29.8 MCHC 33.4 RDW Std Deviation 40.6 RDW Coeff of Tomasa 12.4 Plt Count 207 MPV 10.6 Sodium 142 Potassium 4.1 Chloride 109 H Carbon Dioxide 28.0 Anion Gap 5 BUN 15 Creatinine 1.27 Estim Creat Clear Calc 52.77 Est GFR (MDRD) Af Amer 73 Est GFR (MDRD) Non-Af 60 BUN/Creatinine Ratio 11.8 Glucose 99 Calcium 8.1 L Discharge Diet: Light diet - advance as tolerated Discharge Activity: Return to Normal Activity May resume sexual activity in: No Restrictions Call your doctor if your incision/area has: Continuous Slow Oozing, Sudden Increased Bleeding, Increased Pain/ Swelling, Increased Redness, Foul Smelling Discharge, Swelling at the incision site Call your doctor if you observe: Fever of 101 or Higher, Inability to urinate, Inability to have a bowel movement, Uncontrolled pain Suture Line Care: Avoid Pulling/Pushing, Avoid Pinching/Bending Home Medications: Medications to take at Discharge Natural Product For Prostate 1 tab PO DAILY 12/10/18 Docusate Sodium [Colace] 100 mg PO BID #20 cap 12/20/18 Hydrocodone/Acetaminophen [Mcclave 5-325 Tablet] 1 ea PO Q4H PRN PRN 5 Days #20 tab 12/20/18 Following Prescrptions Were Given to Patient: Docusate Sodium [Colace] 100 mg PO BID #20 cap Prescription Printed Hydrocodone/Acetaminophen [Mcclave 5-325 Tablet] 1 ea PO Q4H PRN PRN 5 Days #20 tab PRN Reason: Pain Prescription Printed Primary Care Physician: Care Physician,No Primary [Primary Care Provider] - Please Follow Up With: David Kay MD When: please call to make an appointment. Medical Necessity - Tobacco Use Smoking Status: Never smoker Tobacco Use: Non-smoker Meaningful Use Info Meaningful Use Diagnoses (Choose all that apply): None applicable
[2018-12-20] MEDS: Pantoprazole Sodium 20 MG Tablet PO (10:08)
[2018-12-20] MEDS: Docusate Sodium 100 MG Capsule PO ×2 (10:08→22:33)
[2018-12-20] MEDS: Magnesium Hydroxide 30 ML UDC 15 ML PO (10:08)
[2018-12-20] MEDS: 0.9% NaCl Peripheral Flush Adult/Peds IV (10:10)
[2018-12-20 10:13] VITALS: BP 99/60; PULSE 67; RESP 16; TEMP 36.7; O2SAT 95
[2018-12-20] MEDS: Acetaminophen 500 MG Tablet PO (15:48)
[2018-12-20 16:00] VITALS: BP 149/80; PULSE 56; RESP 18; TEMP 36.8; O2SAT 93
[2018-12-20 22:30] VITALS: BP 116/76; PULSE 59; RESP 18; TEMP 36.6; O2SAT 92
[2018-12-21] MEDS: HYDROcodone Bitartrate/Apap 5/325 Tablet PO (02:26)
[2018-12-21 02:31] VITALS: BP 147/83; PULSE 56; RESP 18; TEMP 36.8; O2SAT 94
[2018-12-21 07:10] VITALS: O2SAT 88
[2018-12-21 07:39] VITALS: BP 138/84; PULSE 58; RESP 16; TEMP 36.3; O2SAT 93
[2018-12-21] MEDS: Ketorolac 15 MG/ML Vial IV (09:42)
[2018-12-21] MEDS: 0.9% NaCl Peripheral Flush Adult/Peds IV ×2 (09:42→09:48)
[2018-12-21] MEDS: Docusate Sodium 100 MG Capsule PO (09:52)
== END 2018-12-21 10:00 | disposition home or self-care (01) ==
LOC: MS3 10:09
PROVIDERS: Admitting Provider Urology; Referring Provider Urology; Visit Provider Urology
PROC: (CPT 50543; principal; 2018-12-18 07:10)
PROC: (CPT 50543; 2018-12-18 07:10)
DX: D30.01 Benign neoplasm of right kidney (principal); N21.0 Calculus in bladder; R00.1 Bradycardia, unspecified
CPT/HCPCS: 00862; 50543; 52317; S2900; 36415; 71046; 80048; 80053; 85027; 86850; 86900; 86920; 86922; 88305; 88307; 88325; 93005; 96361; 96365; 96366; 96375; 96376; 99218; J7120; A4216; G0378; G0379; J2405

== ENCOUNTER → 2021-02-03 16:20 | Outpatient (CLI) | payer OTHER, SELFPAY ==
[2021-02-03 18:15] LABS: Probe Check PASS
== END ==
PROVIDERS: Visit Provider Physician Assistant
DX: Z20.822 Contact with and (suspected) exposure to COVID-19 (principal)
CPT/HCPCS: 87635; U0005; U0003